=== PATIENT | male | born 1950 | race Caucasian/White ===

== ENCOUNTER 2021-07-24 08:39 | Outpatient (CLI) | payer MEDICARE, OTHER, SELFPAY ==
[2021-07-24 10:15] LABS: Anion Gap 6 mmol/L (8-16); Blood Urea Nitrogen 14 mg/dL (9-20); Calcium 8.9 mg/dL (8.4-10.2); Carbon Dioxide 26 mmol/L (22-30); Chloride 97 mmol/L (98-107); Estimated Glomerular Filt Rate > 60; Glucose 93 mg/dL (65-110); Potassium 4.2 mmol/L (3.4-5.0); Sodium 129 mmol/L (137-145)
== END 2021-07-24 08:40 | disposition home or self-care (01) ==
PROVIDERS: Anesthesiology; PCP Family Medicine; Visit Provider Urology
DX: Z01.812 Encounter for preprocedural laboratory examination (principal); Z51.81 Encounter for therapeutic drug level monitoring; Z79.899 Other long term (current) drug therapy
CPT/HCPCS: 36415; 80048

== ENCOUNTER 2021-07-26 02:14 | Day surgery (SDC) | payer MEDICARE, OTHER, SELFPAY ==
[2021-07-18 11:50] VITALS: BMI 32.2
--- NOTE | 2021-07-20 07:43 | PM.HPGS ---
History of Present Illness History of Present Illness Consent: Risks, benefits, and alternatives have been discussed and questions answered. Patient agrees to proceed with procedure. Chief complaint: BPH Narrative: Olayinka Abdul is a 71 year old male with longstanding, progressive irritable and obstructive voiding symptoms. Evaluation with cystoscopy, transrectal ultrasonography and Urocuff revealed a 33 g prostate with lateral lobe hyperplasia and a small median bar. The Uro cuff was suggestive of bladder outlet obstruction. After discussion of therapeutic options, including ongoing medical therapy, TURP, other minimally invasive procedures for BPH (Rezum, Green-light ablation, etc), he has elected to proceed with Urolift. He is aware the risk of this procedure including, but not limited to, adverse cardiopulmonary events, postoperative bleeding, persistent voiding symptoms. Review of Systems Cardiovascular: Cardiovascular: Denies chest pain, Denies lightheadedness, Denies palpitations and Denies dyspnea Respiratory: Respiratory: Denies dyspnea Gastrointestinal: Gastrointestinal: Denies diarrhea, Denies nausea and Denies vomiting Genitourinary: Genitourinary: Denies hematuria and Denies dysuria Endocrine: Endocrine: Denies palpitations [facility] Social History Social History Smoking packs per day: 1.5 Smoking cigarettes per day: 30.0 Years smoked: 32 Smoking pack-years: 48.00 Smoking status: Former smoker Smoking end date: 05/17/97 Alcohol intake: current Drinks per week: 14 Substance use: never Additional living arrangements comments: Spiritual care concerns: No Meds Home Medications and Allergies Home Medications Medication Instructions Recorded Confirmed Type alendronate 70 mg PO WEEKLY 07/18/21 07/18/21 History aspirin [Adult Aspirin EC Low 81 mg PO DAILY 07/18/21 07/18/21 History Strength] calcium 600 mg PO DAILY 07/18/21 07/18/21 History cetirizine 10 mg PO DAILY 07/18/21 07/18/21 History donepezil 10 mg PO DAILY 07/18/21 07/18/21 History doxazosin 2 mg PO DAILY 07/18/21 07/18/21 History fesoterodine [Toviaz] 8 mg PO DAILY 07/18/21 07/18/21 History fluticasone propion-salmeterol 2 puff INHALATION BID 07/18/21 07/18/21 History [Advair HFA] furosemide 20 mg PO QAM 07/18/21 07/18/21 History ibuprofen 1 mg PO TID 07/18/21 07/18/21 History ipratropium-albuterol 3 ml INHALATION QID 07/18/21 07/18/21 History levofloxacin 500 mg PO DAILY 07/18/21 07/18/21 History lutein 20 mg PO DAILY 07/18/21 07/18/21 History memantine 10 mg PO DAILY 07/18/21 07/18/21 History montelukast 10 mg PO DAILY 07/18/21 07/18/21 History omega-3 fatty acids-vitamin E 1 cap PO DAILY 07/18/21 07/18/21 History [Fish Oil] pantoprazole 40 mg PO DAILY 07/18/21 07/18/21 History phenazopyridine 200 mg PO TID PRN 07/18/21 07/18/21 History pregabalin 100 mg PO BID 07/18/21 07/18/21 History testosterone cypionate 200 mg SUBCUT MONTHLY 07/18/21 07/18/21 History venlafaxine 75 mg PO QAM 07/18/21 07/18/21 History Allergies Allergy/AdvReac Type Severity Reaction Status Date / Time No Known Allergies Allergy Verified 07/18/21 11:34 Exam Const: General: no acute distress Resp: Effort & Inspection: normal respiratory effort GI: Inspection: non-distended GI Palp: No abdominal tenderness and No Guarding due to palpation present (GI) Auscultation: normal bowel sounds Assessment and Plan Assessment and plan (1) BPH loc w urin obs/LUTS: Code(s): N40.1 - Benign prostatic hyperplasia with lower urinary tract symptoms Status: Acute Assessment and Plan: UroLift
[2021-07-26 06:15] VITALS: BP 113/63; PULSE 78; RESP 14; TEMP 36.2; O2SAT 97; BMI 32.5
--- NOTE | 2021-07-26 06:29 | WPDANESEPPF ---
Anes - Initial Pre Proc Eval Procedure: Operation Date: 07/26/21 07:30 Proposed Procedures p Urolift - Keven Gonzales MD Date/Time: 07/26/21 06:29 Surgeon: Keven Gonzales MD Pre Op Diagnosis: BPH Patient Data Age: 71 Gender: M Height: 1.57 m Weight: 80 kg Allergies Allergy/AdvReac Type Severity Reaction Status Date / Time No Known Allergies Allergy Verified 07/18/21 11:34 Home Medications Medication Instructions Recorded Confirmed Type alendronate 70 mg PO WEEKLY 07/18/21 07/18/21 History aspirin [Adult Aspirin EC Low 81 mg PO DAILY 07/18/21 07/18/21 History Strength] calcium 600 mg PO DAILY 07/18/21 07/18/21 History cetirizine 10 mg PO DAILY 07/18/21 07/18/21 History donepezil 10 mg PO DAILY 07/18/21 07/18/21 History doxazosin 2 mg PO DAILY 07/18/21 07/18/21 History fesoterodine [Toviaz] 8 mg PO DAILY 07/18/21 07/18/21 History fluticasone propion-salmeterol 2 puff INHALATION BID 07/18/21 07/18/21 History [Advair HFA] furosemide 20 mg PO QAM 07/18/21 07/18/21 History ibuprofen 1 mg PO TID 07/18/21 07/18/21 History ipratropium-albuterol 3 ml INHALATION QID 07/18/21 07/18/21 History levofloxacin 500 mg PO DAILY 07/18/21 07/18/21 History lutein 20 mg PO DAILY 07/18/21 07/18/21 History memantine 10 mg PO DAILY 07/18/21 07/18/21 History montelukast 10 mg PO DAILY 07/18/21 07/18/21 History omega-3 fatty acids-vitamin E 1 cap PO DAILY 07/18/21 07/18/21 History [Fish Oil] pantoprazole 40 mg PO DAILY 07/18/21 07/18/21 History phenazopyridine 200 mg PO TID PRN 07/18/21 07/18/21 History pregabalin 100 mg PO BID 07/18/21 07/18/21 History testosterone cypionate 200 mg SUBCUT MONTHLY 07/18/21 07/18/21 History venlafaxine 75 mg PO QAM 07/18/21 07/18/21 History Patient hx anesthesia problems: none Family hx anesthesia problems: none PMFSH Past Medical History Medical History (Updated 07/26/21 @ 06:31 by Jet Gonzales MD) COPD (chronic obstructive pulmonary disease) GERD (gastroesophageal reflux disease) JESSICA (obstructive sleep apnea) Requires continuous at home supplemental oxygen Surgical History Surgical History (Updated 07/26/21 @ 06:31 by Jet Gonzales MD) H/O hernia repair Social History Social History Smoking packs per day: 1.5 Smoking cigarettes per day: 30.0 Years smoked: 32 Smoking pack-years: 48.00 Smoking status: Former smoker Smoking end date: 05/17/97 Alcohol intake: current Drinks per week: 14 Substance use: never Living arrangements: with family Additional living arrangements comments: Spiritual care concerns: No Anes - Eval Final PreProcedure Day of Procedure 07/26/21 06:29 Patient weight: obese Heart: regular rate and rhythm Lungs: clear to auscultation Airway: Mallampati scale class II Neurological: alert and oriented Last oral intake: >/= 8 hours ASA classification: III Emergent: no Anesthetic plan: proceed Anesthesia type and monitoring: general GIVS and standard monitoring Informed Consent: The patient's anesthetic plan and its attendant risks and benefits were discussed with the patient/family/POA. Questions were solicited and answers provided to the satisfaction of the patient/family/POA.
[2021-07-26] MEDS: LACTATED RINGERS 1,000 ML 30 ML IV CONT (07:05)
--- NOTE | 2021-07-26 07:11 | WPDHPUPDATE1 ---
History and Physical Update Update Date/Time: 07/26/21 07:11 History and Physical has been reviewed, including an updated exam of the patient. There are NO changes in the patient's condition. Risks, benefits, and alternatives have been discussed and questions answered. Patient agrees to proceed with procedure.
[2021-07-26 07:14] LABS: Anion Gap 7 mmol/L (8-16); Blood Urea Nitrogen 12 mg/dL (9-20); Calcium 8.8 mg/dL (8.4-10.2); Carbon Dioxide 22 mmol/L (22-30); Chloride 100 mmol/L (98-107); Estimated CRCL calculation 56 ml/min; Estimated Glomerular Filt Rate > 60; Glucose 95 mg/dL (65-110); Potassium 4.3 mmol/L (3.4-5.0); Sodium 129 mmol/L (137-145)
[2021-07-26] MEDS: ceFAZolin 2 GM/D5W 50 ML 2 GM/50 ML BAG IVPB (07:25)
[2021-07-26] MEDS: LIDOCAINE HCL 2% GEL UROJET 10 ML PKG MUCOUS MEM (07:37)
--- NOTE | 2021-07-26 07:47 | W.PM.PROC2 ---
Procedure Note - Detailed Date of Procedure 07/26/21 Pre-op Diagnosis BPH Post-op Diagnosis same Procedure Performed UroLift Surgeon Keven Gonzales MD Anesthesia general Description of Procedure The patient was prepped and draped in a routine fashion after the uneventful induction of a general LMA anesthetic. A 20F cystoscope was inserted into the bladder. The cystoscopy bridge was replaced with a UroLift delivery device. The first treatment site was the patient's right side approximately 2.0cm distal to the bladder neck. The distal tip of the delivery device was then angled laterally approximately 20 degrees at this position to compress the lateral lobe. The trigger was pulled, thereby deploying a needle containing the implant through the prostate. The needle was then retracted, allowing one end of the implant to be delivered to the capsular surface of the prostate. The implant was then tensioned to assure capsular seating and removal of slack monofilament. The device was then angled back toward midline and slowly advanced proximally (typically 3 to 4 mm) until cystoscopic verification of the monofilament being centered in the delivery bay. The urethral end piece was then affixed to the monofilament thereby tailoring the size of the implant. Excess filament was then severed. The delivery device was then re-advanced into the bladder. The delivery device was then replaced with cystoscope and bridge and the implant location and opening effect was confirmed cystoscopically. The same procedure was then repeated on the left side, and two additional implants were delivered just proximal to the verumontanum, again one on right and one on left side of the prostate, following the same technique. Cystoscopy then revealed a persistent area of obstruction arising from the left lateral lobe, anteriorly, and one more implant was stacked in the mid-prostate on that side. Therefore, a total of 5 implants were delivered. A final cystoscopy was conducted first to inspect the location and state of each implant and second, to confirm the presence of a continuous anterior channel was present through the prostatic urethra with irrigation flow turned off. The bladder was then filled with 150 cc irrigation fluid to assist the patient in void trial after the procedure, and all instruments were removed. At this point the cystoscope was removed and the patient was taken to the PACU in good condition. Drains No Packing No Pathology none sent Complications No immediate complications Condition stable Disposition PACU
[2021-07-26 07:49] VITALS: BP 88/45; PULSE 86; RESP 16; O2SAT 92
[2021-07-26 08:15] VITALS: BP 90/51; PULSE 81; RESP 20
[2021-07-26 08:45] VITALS: BP 113/71; PULSE 74; RESP 20
[2021-07-26 08:50] VITALS: BP 124/55; PULSE 76; RESP 20
== END 2021-07-26 09:10 | disposition home or self-care (01) ==
PROVIDERS: PCP Family Medicine; Visit Provider Urology
PROC: 0T7D8DZ Dilation of Urethra with Intraluminal Device, Via Natural or Artificial Opening Endoscopic (ICD-10-PCS; CPT 52441; principal; 2021-07-26 07:30)
DX: N40.1 Benign prostatic hyperplasia with lower urinary tract symptoms (principal); N13.8 Other obstructive and reflux uropathy; J44.9 Chronic obstructive pulmonary disease, unspecified; K21.9 Gastro-esophageal reflux disease without esophagitis; G47.33 Obstructive sleep apnea (adult) (pediatric); Z99.81 Dependence on supplemental oxygen; Z79.82 Long term (current) use of aspirin; Z87.891 Personal history of nicotine dependence; E66.9 Obesity, unspecified; Z68.32 Body mass index [BMI] 32.0-32.9, adult
CPT/HCPCS: C9740; 36415; 80048; A9270; J0690; J2704; J3010; J7120; L8699

== ENCOUNTER 2024-07-25 08:53 | Inpatient (IN) | payer MEDICARE, OTHER, SELFPAY ==
[2024-07-25] VITALS (40 sets, daily range): BP systolic 80–141; BP diastolic 50–91; PULSE 54–96; RESP 12–22; TEMP 36.4–36.7; O2SAT 93–100; BMI 30.2
--- NOTE | ~2024-07-25 | CT_ITS ---
Clinical Indication: Pneumonia CT Scan of the Chest with Contrast: Technique: Contiguous sections were acquired throughout the chest after intravenous administration of 100 cc of Omnipaque 350. Dose reduction technique was used on this scan by utilizing automated expos ure control and iterative reconstruction technique. The dose-length product (DLP) was 498.68 mGy-cm. Findings: There is no evidence of any significant mediastinal, hilar or axillary lymphadenopathy. There is no f illing defect in the pulmonary arterial tree to suggest pulmonary embolus. There is no evidence of ao rtic dissection or aneurysm. There is no evidence of pleural or pericardial effusion. There is advanced emphysema. There is a 1.9 cm right upper lobe pulmonary nodule in the perihilar reg ion (axial image 46). 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 5 mm nodule noted at the lingula (axial image 65). Ther e is irregular nodule/consolidation measuring approximately 2 cm in diameter in the left lower lobe ( axial image 65). There is an additional 9 mm irregular nodule in the subpleural region in the left lo wer lobe (axial image 81). Images through the upper abdomen reveal no abnormalities. Impression: No evidence of pulmonary embolus, aortic dissection, or aortic aneurysm. Bilateral pulmonary nodules, including 1.9 cm right upper lobe pulmonary nodule, 2 cm left lower lobe pulmonary nodule, as well as additional subcentimeter nodules. Please see details above. These are i ndeterminate, especially without prior exams to establish chronicity of these lesions. Consider short -term follow-up exam after chemotherapy versus PET/CT or tissue sampling to further evaluate, as neop lastic lesions are not excluded. Comparison with any outside prior chest CT would be extremely useful to assess for chronicity of these lesions. Reviewed, dictated and finalized at [facility]. Impression: No evidence of pulmonary embolus, aortic dissection, or aortic aneurysm. Bilateral pulmonary nodules, including 1.9 cm right upper lobe pulmonary nodule , 2 cm left lower lobe pulmonary nodule, as well as additional subcentimeter no dules. Please see details above. These are indeterminate, especially without pr ior exams to establish chronicity of these lesions. Consider short-term follow- up exam after chemotherapy versus PET/CT or tissue sampling to further evaluate , as neoplastic lesions are not excluded. Comparison with any outside prior [facility] st CT would be extremely useful to assess for chronicity of these lesions.
--- NOTE | ~2024-07-25 | CT_ITS ---
Noncontrast CT scan of the cervical spine Technique: Multiple contiguous axial [address] images of the cervical spine were obtained and rec onstructed in 2D sagittal and coronal planes on the acquisition scanner. Dose reduction technique was used on this scan by utilizing automated exposure control, adjustment of the mA and/or kV according to patient size. The dose-length product (DLP) was 495.02 mGy-cm. Clinical History: Pain Findings: No fracture identified. There is 4 mm anterolisthesis of C4 over C5. There is mild reversal normal cervical lordosis. There is severe degenerative disc narrowing at C6-C7. There is moderate de generative disc narrowing at C5-C6. There are moderate to advanced facet joint degenerative changes s cattered in the cervical spine. There is right neural foraminal narrowing at C3-C4. Probable right ne ural foraminal narrowing at C4-C5. There is mild left neural foraminal narrowing at C5-C6. There is b ilateral neural foraminal narrowing at C6-C7. There is mild to moderate canal stenosis at C6-C7. No p revertebral soft tissue swelling. Impression: No fracture. 4 mm anterolisthesis of C4 over C5. Degenerative spondylosis, as above. Reviewed, dictated and finalized at location . Impression: No fracture. 4 mm anterolisthesis of C4 over C5. Degenerative spondylosis, as above.
--- NOTE | ~2024-07-25 | XR_ITS ---
Clinical Indication: Syncope PA and lateral views of the chest: Comparison: None Findings: Suspected focal subtle hazy opacity right upper lobe. Questionable focal retrocardiac airsp nicho disease. Cardiomediastinal silhouette is within normal limits. Bones and soft tissues are unrema rkable. Impression: Possible focal airspace disease right upper lobe and left lower lobe. Consider pneumonia or possibly chronic changes. Consider chest CT to better evaluate. Reviewed, dictated and finalized at location . Impression: Possible focal airspace disease right upper lobe and left lower lobe. Consider pneumonia or possibly chronic changes. Consider chest CT to better evaluate.
--- NOTE | ~2024-07-25 | CT_ITS ---
CT head without contrast Indication: Status post fall Technique: Serial scans were obtained through the brain without the administration of contrast. Dose reduction technique was used on this scan by utilizing automated exposure control and iterative recon struction technique. The dose-length product (DLP) was 681.00 mGy-cm. Findings: There is no evidence of intracranial hemorrhage, mass lesion, or acute infarct. The ventri cles and subarachnoid spaces are dilated, consistent with moderate atrophy. Low attenuation regions are seen within the periventricular white matter bilaterally, likely representing changes from chroni c microvascular ischemic disease. There is no evidence of edema, mass effect or midline shift. The visualized paranasal sinuses and mastoid air cells are clear. Impression: No intracranial hemorrhage, mass, or acute infarct. Atrophy and chronic white matter changes, as above. Reviewed, dictated and finalized at location . Impression: No intracranial hemorrhage, mass, or acute infarct. Atrophy and chronic white matter changes, as above.
--- NOTE | 2024-07-25 09:09 | ECG_ITS ---
Test Date: 2024-07-25 09:18:34 Measurements Intervals [place] Rate: 60 P: 25 OK: 206 QRS: -19 QRSD: 139 T: 18 QT: 394 QTc: 394 Interpretive Statements SINUS RHYTHM WITH OCCASIONAL VENTRICULAR PREMATURE COMPLEXES BORDERLINE AV CONDUCTION DELAY RIGHT BUNDLE BRANCH BLOCK BASELINE ARTIFACT- I, II, AVR, AVF ABNORMAL ECG No previous ECG available for comparison Electronically Signed On 07-25-2024 11:42:54 CDT by Alcides Quintero D.O.
[2024-07-25 09:41] LABS: Basophils Percent Auto 0.2 % (0.2-1.2); Eosinophils Absolute Auto 0.1 K/mm3 (0-0.3); Eosinophils Percent Auto 0.6 % (0-4.4); Hematocrit 34.9 % (42.0-52.0); Immature Granulocyte Absolute 0.24 K/mm3 (0.00-0.031); Lymphocytes Absolute Auto 1.21 K/mm3 (0.9-3.2); Mean Corpuscular HGB Conc 31.5 g/dl (32-36); Mean Corpuscular Hemoglobin 26.4 pg (26-34); Mean Corpuscular Volume 83.9 fl (80-100); Monocytes Percent Auto 12.9 % (2.6-8.5); Neutrophils Absolute Auto 5.5 K/mm3 (1.3-6.7); Neutrophils Percent Auto 68.3 % (45.5-73.1); Platelet Count Result 235 k/mm3 (150-375); Red Blood Count 4.16 M/mm3 (4.6-6.20); Red Cell Distribution Width 15.9 % (11.5-14.5); White Blood Count 8.1 K/mm3 (4.5-10.0)
[2024-07-25 09:51] LABS: Alanine Aminotransferase 25 U/L (6-50); Albumin Level 3.7 g/dL (3.5-5.1); Alkaline Phosphatase 100 U/L (38-126); Anion Gap 8 mmol/L (4-12); Aspartate Amino Transferase 28 U/L (17-59); Bilirubin,Total 0.4 mg/dL (0.2-1.3); Blood Urea Nitrogen 30 mg/dL (9-20); Carbon Dioxide 25 mmol/L (22-30); Chloride 98 mmol/L (98-107); Estimated CRCL calculation 57 ml/min; Estimated Glomerular Filt Rate > 60; Glucose 101 mg/dL (65-110); Potassium 4.3 mmol/L (3.4-5.0); Sodium 131 mmol/L (137-145)
--- NOTE | 2024-07-25 10:01 | ED.SYNCOPE ---
HPI - Syncope General Chief Complaint: Syncope Stated Complaint: syncopal episode, head injury Time Seen by Provider: 07/25/24 09:59 Source: patient, family () and other (Friend) Mode of arrival: ambulatory Limitations: no limitations History of Present Illness HPI narrative: Patient presents after an episode of syncope. Family and friend confirmed that there was combination of loss of consciousness and muscle tone. Patient had been trying to get out of the car at [employer] when he stood from seated position and then slumped down. He then had his eyes open but he was not responding to them for period of time. He denies any preceding aura sensation that he might faint. He denies any chest pain or shortness of breath. He does wear 4 liters/minute nasal cannula supplemental oxygen for a combination of CHF, COPD, and pulmonary hypertension. He notes that he has had multiple falls recently and this has left his neck sore with intermittent pain. For this reason and because he was experiencing neck pain today he did take 2 extra-strength Tylenol prior to arrival to the emergency department. He is still experiencing some pain at this time despite that. Patient is on dabigatran/Pradaxa for a blood clot that was diagnosed in his left leg a few months ago. He reports taking this b.i.d. including taking his morning dose. He is also on 20 mg b.i.d. Lasix he took his morning dose of this as well. He denies any dizziness but he does state that after the fall he just does not feel well. He has also been amnestic to the event and had some retrograde amnesia. In addition he has a headache. No lower extremity edema. Related Data Home Medications Medication Instructions Recorded Confirmed acetaminophen 325 mg tablet 650 mg PO Q4H pain 07/25/24 07/25/24 albuterol sulfate 90 mcg/actuation 2 inh inhalation Q6H PRN wheezing 07/25/24 07/25/24 aerosol inhaler (Proventil HFA) cetirizine 10 mg tablet 10 mg PO DAILY 07/25/24 07/25/24 dabigatran etexilate 150 mg 150 mg PO BID 07/25/24 07/25/24 capsule (Pradaxa) diltiazem HCl 120 mg 1 mg PO DAILY 07/25/24 07/25/24 tablet,extended release 24 hr donepezil 10 mg tablet 10 mg PO DAILY 07/25/24 07/25/24 empagliflozin 10 mg tablet 10 mg PO DAILY 07/25/24 07/25/24 (Jardiance) fluticasone propionate 230 2 inh inhalation BID 07/25/24 07/25/24 mcg-salmeterol 21 mcg/actuation HFA inhaler furosemide 40 mg tablet 40 mg PO DAILY 07/25/24 07/25/24 itraconazole 10 mg/mL oral solution 200 mg PO BID 07/25/24 07/25/24 lidocaine 5 % topical patch 1 patch topical DAILY 07/25/24 07/25/24 lutein 20 mg capsule 20 mg PO DAILY 07/25/24 07/25/24 memantine 10 mg tablet 10 mg PO BID 07/25/24 07/25/24 metoprolol succinate 50 mg 50 mg PO DAILY 07/25/24 07/25/24 tablet,extended release 24 hr montelukast 10 mg tablet 10 mg PO DAILY 07/25/24 07/25/24 oxybutynin chloride 10 mg 10 mg PO DAILY 07/25/24 07/25/24 tablet,extended release 24 hr pantoprazole 40 mg tablet,delayed 40 mg PO DAILY 07/25/24 07/25/24 release pregabalin 200 mg capsule 200 mg PO BID 07/25/24 07/25/24 spironolactone 25 mg tablet 25 mg PO DAILY 07/25/24 07/25/24 tiotropium bromide 2.5 2 inh inhalation DAILY 07/25/24 07/25/24 mcg/actuation mist for inhalation (Spiriva Respimat) tramadol 50 mg tablet 50 mg PO Q6H PRN Pain 07/25/24 07/25/24 venlafaxine 150 mg 150 mg PO HS 07/25/24 07/25/24 capsule,extended release 24 hr venlafaxine 75 mg capsule,extended 75 mg PO HS 07/25/24 07/25/24 release 24 hr Allergies Allergy/AdvReac Type Severity Reaction Status Date / Time No Known Allergies Allergy Verified 07/25/24 10:41 [facility] Past Medical History Medical History (Updated 07/25/24 @ 20:16 by Catalina Castano PA-C) Anxiety Arthritis Benign prostatic hyperplasia UroLift in July 2021. Chronic anticoagulation Chronic obstructive pulmonary disease Chronic respiratory failure with hypoxia, on home oxygen therapy Congestive heart fa
[2024-07-25] MEDS: MORPHINE SULFATE (*CRX) 4 MG/ML INJ IV PUSH (10:42)
[2024-07-25 11:01] LABS: Magnesium 2.1 mg/dL (1.6-2.3)
[2024-07-25 11:01] LABS: Add Urine Microscopic? NO; Appearance Urine Clear (Clear); Bilirubin Urine Negative (Negative); Blood Urine Negative (Negative); Color Urine Yellow (Yellow); Glucose Urine UA 3+ mg/dL (Negative); Ketones Urine Negative (Negative); Leukocyte Esterase Ur Negative LEU/UL (Negative); Nitrate Urine Negative (Negative); Protein Urine Negative (Negative); Specific Grav Ur 1.019 (1.001-1.035); Urobilinogen Urine 0.2 mg/dL (<2.0)
[2024-07-25 11:10] LABS: NT Pro B Type Natriuretic Pept 166 pg/mL (19.9-100); Troponin I < 0.012 ng/mL (0.000-0.034)
[2024-07-25] MEDS: SODIUM CHLORIDE 0.9% IV 1,000 ML 999 ML IV CONT ×2 (11:19→13:34)
[2024-07-25 11:35] LABS: Influenza A QL RT-PCR Negative (Negative); Influenza B QL RT-PCR Negative (Negative); RSV RNA, RT-PCR Negative (Negative); SARS-CoV-2 RNA PCR Negative (Negative)
--- NOTE | 2024-07-25 13:25 | PM.IMHP ---
H&P: HPI History of Present Illness Date/Time: 07/25/24 13:25 Chief Complaint: Syncope. Narrative: This is a very pleasant 74-year-old male with history of mild cognitive impairment, chronic obstructive pulmonary disease, pulmonary hypertension, obstructive sleep apnea, chronic respiratory failure on home oxygen, heart failure with preserved ejection fraction, left lower extremity DVT on dabigatran, and benign prostatic hyperplasia who presented to the emergency department for evaluation after syncopal episode. The patient and his provide the following history. He was hospitalized at [facility] in the last month and a half or so at which time he was diagnosed with fungal pneumonia for which he is to remain on itraconazole for upwards of a year. During that visit he was found to have a left lower extremity DVT and was started on dabigatran. He also had a stress echo and was started on diltiazem, metoprolol, and spironolactone thereafter though he cannot provide more specific details. In any event, he has been doing okay since discharge and he has not had any real complaints. His home health nurse has remarked that his blood pressures have been lower than usual since his discharge though the patient seems to be asymptomatic with that. He has bruising throughout his upper and lower extremities and reports that he has had numerous falls this year but none in a couple of weeks. He is essentially wheelchair bound but can stand and pivot however he admits that he is quite weak and his legs tend to give out, causing the falls. He felt okay when he got up this morning, had breakfast, and he and his headed out to [employer]. While attempting to exit the car he slumped in the seat and was briefly unresponsive although states his eyes were open. He does not recall experiencing antecedent symptoms prior to this episode. He denies fever, vertigo, chest pain, pleuritic pain, increase in shortness of breath from baseline, palpitations, orthopnea, paroxysmal nocturnal dyspnea, lower extremity edema, calf pain, nausea, vomiting, diarrhea, and dysuria. In the ED: He was afebrile on arrival and in sinus rhythm with rates in the low 60s. SpO2 was 98% on his usual 4 L. Orthostatic vital signs were positive (128/65, 61--> 113/70, 62--> 80/50, 96). Labs were significant for WBC count of 8.1, hemoglobin 11.0, sodium 131, BUN 30, creatinine 0.90, troponin less than 0.012, proBNP 166. He was negative for influenza, RSV, and COVID. CT of the head and cervical spine showed no acute findings. Chest CT showed no evidence of pulmonary embolism, dissection, or aneurysm but did note several bilateral pulmonary nodules which are known to the patient. EKG showed sinus rhythm with occasional PVCs and right bundle-branch block. He received 2 L normal saline and is being admitted in this setting for further treatment and evaluation. Review of Systems Review of Systems: 12 systems were reviewed and are negative except for as per HPI. [facility] Past Medical History Medical History (Updated 07/25/24 @ 20:16 by Catalina Castano PA-C) Anxiety Arthritis Benign prostatic hyperplasia UroLift in July 2021. Chronic anticoagulation Chronic obstructive pulmonary disease Chronic respiratory failure with hypoxia, on home oxygen therapy Congestive heart failure Fungal pneumonia Left leg DVT Mild cognitive impairment Obstructive sleep apnea on CPAP Pulmonary hypertension Pulmonary nodule Followed by a specialist affiliated [facility]. Surgical History Surgical History (Updated 07/25/24 @ 13:29 by Catalina Castano PA-C) History of bilateral inguinal hernia repair History of cataract extraction with lens replacement History of detached retina repair Right. History of open reduction and internal fixation (ORIF) procedure Left foot. Family History Family History (Updated 07/25/24 @ 16:53 by Catalina Castano PA-C) Other Family history non-contributory Soc
--- NOTE | 2024-07-25 14:16 | PC.NURSE ---
This patient, Olayinka Abdul, was admitted to Medical Room 254-01. Patient/family oriented to hospital policies and general routines including ID bracelet, bed and alarms, visiting hours, pain management, procedures, bathroom and other care routines, personal items, smoking policy, room service/diet, and visiting hours. Information on how to activate the Rapid Response Team has been discussed. Patient/Family are encouraged to report perceived risks to care and to ask questions if they do not understand what they are told or what they should do.
[2024-07-25 16:23] LABS: Urea Random Urine 347 MG/DL
[2024-07-25 16:30] LABS: Sodium Urine Random 103 meq/L
[2024-07-25] MEDS: LACTATED RINGERS 1,000 ML 100 ML IV CONT (17:25)
[2024-07-25 18:44] LABS: Folic Acid > 20.0 ng/mL (2.76->20)
[2024-07-25 20:20] LABS: Iron 52 ug/dL (49-181)
[2024-07-25 20:31] LABS: Percent Iron Saturation 13 % (20-50)
[2024-07-25] MEDS: PREGABALIN (*CRX) 50 MG CAPSULE 200 MG PO (20:41)
[2024-07-25] MEDS: traMADol HCL (*CRX) 50 MG TABLET PO (20:41)
[2024-07-25] MEDS: DABIGATRAN ETEXILATE 150 MG CAPSULE PO (20:42)
[2024-07-25] MEDS: VENLAFAXINE HCL XR 75 MG CAP.ER.24H PO (20:42)
[2024-07-25] MEDS: VENLAFAXINE HCL XR 75 MG CAP.ER.24H 150 MG PO (20:42)
[2024-07-25] MEDS: MEMANTINE 10 MG TABLET PO (20:42)
[2024-07-25] MEDS: FLUTICASONE/SALMETEROL 230-21 MCG INHALER 1 PUFF 2 PUFF INHALATION (21:13)
[2024-07-26] VITALS (23 sets, daily range): BP systolic 79–120; BP diastolic 42–72; PULSE 53–88; RESP 17–20; TEMP 36.3–36.6; O2SAT 93–100
[2024-07-26 03:18] LABS: Free T4 Free Thyroxine Reflex 0.86 ng/dL (0.78-2.19)
[2024-07-26 04:16] LABS: Total Triiodothyronine (T3) 1.23 NG/ML (0.97-1.69)
[2024-07-26 06:21] LABS: Hematocrit 35.1 % (42.0-52.0); Hemoglobin 10.7 g/dL (14.0-18.0); Mean Corpuscular HGB Conc 30.5 g/dl (32-36); Mean Corpuscular Volume 85.4 fl (80-100); Mean Platelet Volume 9.1 fl (7.4-10.4); Platelet Count Result 232 k/mm3 (150-375); Red Blood Count 4.11 M/mm3 (4.6-6.20); Red Cell Distribution Width 16.3 % (11.5-14.5); White Blood Count 8.1 K/mm3 (4.5-10.0)
[2024-07-26 06:31] LABS: Anion Gap 2 mmol/L (4-12); Blood Urea Nitrogen 21 mg/dL (9-20); Calcium 9.2 mg/dL (8.4-10.2); Carbon Dioxide 27 mmol/L (22-30); Chloride 105 mmol/L (98-107); Estimated CRCL calculation 58 ml/min; Estimated Glomerular Filt Rate > 60; Glucose 75 mg/dL (65-110); Magnesium 2.2 mg/dL (1.6-2.3); Potassium 5.1 mmol/L (3.4-5.0); Sodium 134 mmol/L (137-145)
[2024-07-26] MEDS: FLUTICASONE/SALMETEROL 230-21 MCG INHALER 1 PUFF 2 PUFF INHALATION ×2 (08:12→20:25)
[2024-07-26] MEDS: UMECLIDINIUM BROMIDE 62.5 MCG ELLIPTA 1 PUFF INHALATION (08:13)
[2024-07-26] MEDS: MEMANTINE 10 MG TABLET PO ×2 (09:18→20:20)
[2024-07-26] MEDS: PANTOPRAZOLE 40 MG TABLET PO (09:19)
[2024-07-26] MEDS: EMPAGLIFLOZIN 10 MG TABLET PO (09:19)
[2024-07-26] MEDS: PREGABALIN (*CRX) 50 MG CAPSULE 200 MG PO ×2 (09:23→20:19)
[2024-07-26] MEDS: LORATADINE 10 MG TABLET PO (09:23)
[2024-07-26] MEDS: MONTELUKAST SODIUM 10 MG TABLET PO (09:24)
[2024-07-26] MEDS: oxyBUTYnin CHLORIDE XL 5 MG TAB.ER.24 10 MG PO (09:26)
[2024-07-26] MEDS: DABIGATRAN ETEXILATE 150 MG CAPSULE PO ×2 (09:43→20:19)
--- NOTE | 2024-07-26 09:43 | PM.IMPN ---
Progress Note: A&P Assessment and Plan (1) Chronic obstructive pulmonary disease: Code(s): J44.9 - Chronic obstructive pulmonary disease, unspecified Status: Acute Assessment and Plan: Take inhalers as prescribed. Report any worsening shortness of breath. (2) Orthostatic syncope: Code(s): I95.1 - Orthostatic hypotension Status: Acute Assessment and Plan: NS@ 100 ml/hr x 5 hours. Encourage PO intake. Slow movement. Only up with assistance. Monitor orthostatics. (3) Benign prostatic hyperplasia: Code(s): N40.0 - Benign prostatic hyperplasia without lower urinary tract symptoms Status: Chronic Assessment and Plan: Continue Oxybutynin. Report any difficulty urinating or blood in urine. (4) Obstructive sleep apnea on CPAP: Code(s): G47.33 - Obstructive sleep apnea (adult) (pediatric) Status: Acute Assessment and Plan: Wear CPAP at night and when napping. Report any shortness of breath. (5) Normocytic anemia: Code(s): D64.9 - Anemia, unspecified Status: Acute Assessment and Plan: 07/26/24: H&H 10.7/35.1. 07/25/24: Iron 52, TIBC 404, % saturation 13, Ferritin 35.80. Add Ferrous Sulfate 325 mg PO daily. Check stool for occult blood. Plan The patient presented to the emergency department for evaluation after a witnessed syncopal episode as detailed in HPI. Labs, imaging, EKG, and all reports were personally reviewed. Likely due to orthostatic hypotension. According to the patient, his home health nurse has noticed that his blood pressures have been a lot lower than normal after he was started on diltiazem, metoprolol, and spironolactone following is most recent hospitalization. He will be monitored on telemetry to rule out cardiac dysrhythmia given bradycardia. Hold donepezil and doxazosin as these can cause orthostatic hypotension. We will also hold his diltiazem, furosemide, and spironolactone as well for now. Continue metoprolol with parameters. Continue to monitor orthostatic vital signs Q shift. Initiate fall precautions. He received 2 L of crystalloids in the ED with some improvement his blood pressures. Hold on further fluids at this time as he appears euvolemic (while his sodium is a bit low at 131 and BUN is up at 30, fractional excretion of sodium and urea suggest this is not pre renal). He has a mild normocytic anemia for which we will check iron studies, B12, folate, and stool for occult blood; patient is on dabigatran for recently diagnosed left lower extremity DVT. Given his frequent falls and now syncope, it may be prudent to consider IVC filter placement. He is at his baseline oxygen requirement. No evidence of COPD exacerbation. CPAP will be provided for the patient to use while hospitalized. Regarding the pulmonary nodules, these are known to the patient and he is being followed by specialists affiliated with [facility]. Continue itraconazole b.i.d. for fungal pneumonia. The rest of his home medications will be reviewed and resumed as appropriate. Records requested from [facility] for review. Findings and treatment plan were discussed with the patient. Subjective Date/time seen: 07/26/24 09:43 Interval history: This is a very pleasant 74-year-old male with history of mild cognitive impairment, chronic obstructive pulmonary disease, pulmonary hypertension, obstructive sleep apnea, chronic respiratory failure on home oxygen, heart failure with preserved ejection fraction, left lower extremity DVT on dabigatran, and benign prostatic hyperplasia who presented to the emergency department for evaluation after syncopal episode. The patient and his provide the following history. He was hospitalized at [facility] in the last month and a half or so at which time he was diagnosed with fungal pneumonia for which he is to remain on itraconazole for upwards of a year. During that visit he was found to have a left lower extremity DVT and was sta
[2024-07-26] MEDS: traMADol HCL (*CRX) 50 MG TABLET PO ×2 (09:49→20:31)
[2024-07-26] MEDS: LIDOCAINE 5% PATCH 1 PATCH TOPICAL (09:57)
[2024-07-26] MEDS: SODIUM CHLORIDE 0.9% IV 500 ML 100 ML IV CONT (13:27)
[2024-07-26] MEDS: VENLAFAXINE HCL XR 75 MG CAP.ER.24H PO (20:20)
[2024-07-26] MEDS: VENLAFAXINE HCL XR 75 MG CAP.ER.24H 150 MG PO (20:21)
[2024-07-27] VITALS (24 sets, daily range): BP systolic 103–147; BP diastolic 51–75; PULSE 62–87; RESP 18–20; TEMP 35.6–36.5; O2SAT 95–100
[2024-07-27 06:08] LABS: Basophils Percent Auto 0.4 % (0.2-1.2); Eosinophils Absolute Auto 0.1 K/mm3 (0-0.3); Hemoglobin 10.8 g/dL (14.0-18.0); Immature Granulocyte Absolute 0.19 K/mm3 (0.00-0.031); Immature Granulocyte Percent A 2.5 % (0-0.5); Lymphocytes Absolute Auto 1.28 K/mm3 (0.9-3.2); Lymphocytes Percent Auto 16.6 % (18.3-44.2); Mean Corpuscular HGB Conc 30.9 g/dl (32-36); Mean Corpuscular Hemoglobin 26.3 pg (26-34); Mean Corpuscular Volume 85.4 fl (80-100); Mean Platelet Volume 9.2 fl (7.4-10.4); Neutrophils Absolute Auto 5.1 K/mm3 (1.3-6.7); Neutrophils Percent Auto 66.5 % (45.5-73.1); Platelet Count Result 230 k/mm3 (150-375); Red Cell Distribution Width 16.2 % (11.5-14.5); White Blood Count 7.7 K/mm3 (4.5-10.0)
[2024-07-27 06:14] LABS: Alanine Aminotransferase 24 U/L (6-50); Albumin Level 3.4 g/dL (3.5-5.1); Alkaline Phosphatase 94 U/L (38-126); Anion Gap 5 mmol/L (4-12); Aspartate Amino Transferase 25 U/L (17-59); Bilirubin,Total 0.3 mg/dL (0.2-1.3); Blood Urea Nitrogen 26 mg/dL (9-20); Calcium 8.9 mg/dL (8.4-10.2); Carbon Dioxide 27 mmol/L (22-30); Chloride 103 mmol/L (98-107); Estimated CRCL calculation 58 ml/min; Estimated Glomerular Filt Rate > 60; Glucose 77 mg/dL (65-110); Potassium 4.4 mmol/L (3.4-5.0); Sodium 135 mmol/L (137-145)
[2024-07-27] MEDS: FLUTICASONE/SALMETEROL 230-21 MCG INHALER 1 PUFF 2 PUFF INHALATION ×2 (08:33→20:27)
[2024-07-27] MEDS: UMECLIDINIUM BROMIDE 62.5 MCG ELLIPTA 1 PUFF INHALATION (08:33)
[2024-07-27] MEDS: MEMANTINE 10 MG TABLET PO ×2 (10:18→20:14)
[2024-07-27] MEDS: MONTELUKAST SODIUM 10 MG TABLET PO (10:18)
[2024-07-27] MEDS: FERROUS SULFATE 325 MG TABLET DR PO (10:18)
[2024-07-27] MEDS: DABIGATRAN ETEXILATE 150 MG CAPSULE PO ×2 (10:18→20:14)
[2024-07-27] MEDS: METOPROLOL SUCCINATE EXT REL 50 MG TABCR PO (10:19)
[2024-07-27] MEDS: oxyBUTYnin CHLORIDE XL 5 MG TAB.ER.24 10 MG PO (10:20)
[2024-07-27] MEDS: PANTOPRAZOLE 40 MG TABLET PO (10:21)
[2024-07-27] MEDS: PREGABALIN (*CRX) 50 MG CAPSULE 200 MG PO ×2 (10:21→20:13)
[2024-07-27] MEDS: LORATADINE 10 MG TABLET PO (10:21)
[2024-07-27] MEDS: EMPAGLIFLOZIN 10 MG TABLET PO (10:21)
[2024-07-27] MEDS: LIDOCAINE 5% PATCH 1 PATCH TOPICAL (10:21)
[2024-07-27] MEDS: traMADol HCL (*CRX) 50 MG TABLET PO ×2 (11:21→20:13)
--- NOTE | 2024-07-27 12:08 | PM.IMPN ---
Progress Note: A&P Assessment and Plan (1) Chronic obstructive pulmonary disease: Code(s): J44.9 - Chronic obstructive pulmonary disease, unspecified Status: Acute Assessment and Plan: Take inhalers as prescribed. Report any worsening shortness of breath. (2) Orthostatic syncope: Code(s): I95.1 - Orthostatic hypotension Status: Acute Assessment and Plan: Improved after NS@ 100 ml/hr x 5 hours. Patient current orthostatic vital signs: supine BP 128/51 HR 87, Sitting 111/63 HR 83, and standing 113/68 HR 76. Encourage PO intake. Slow movement. Only up with assistance. Monitor orthostatics. (3) Benign prostatic hyperplasia: Code(s): N40.0 - Benign prostatic hyperplasia without lower urinary tract symptoms Status: Chronic Assessment and Plan: Continue Oxybutynin. Report any difficulty urinating or blood in urine. (4) Obstructive sleep apnea on CPAP: Code(s): G47.33 - Obstructive sleep apnea (adult) (pediatric) Status: Acute Assessment and Plan: Wear CPAP at night and when napping. Report any shortness of breath. (5) Normocytic anemia: Code(s): D64.9 - Anemia, unspecified Status: Acute Assessment and Plan: 07/27/24: H&H 10.8/35.0. 07/26/24: H&H 10.7/35.1. 07/25/24: Iron 52, TIBC 404, % saturation 13, Ferritin 35.80. Ferrous Sulfate 325 mg PO daily. Check stool for occult blood. Plan The patient presented to the emergency department for evaluation after a witnessed syncopal episode as detailed in HPI. Labs, imaging, EKG, and all reports were personally reviewed. Likely due to orthostatic hypotension. According to the patient, his home health nurse has noticed that his blood pressures have been a lot lower than normal after he was started on diltiazem, metoprolol, and spironolactone following is most recent hospitalization. He will be monitored on telemetry to rule out cardiac dysrhythmia given bradycardia. Hold donepezil and doxazosin as these can cause orthostatic hypotension. We will also hold his diltiazem, furosemide, and spironolactone as well for now. Continue metoprolol with parameters. Continue to monitor orthostatic vital signs Q shift. Initiate fall precautions. He received 2 L of crystalloids in the ED with some improvement his blood pressures. Hold on further fluids at this time as he appears euvolemic (while his sodium is a bit low at 131 and BUN is up at 30, fractional excretion of sodium and urea suggest this is not pre renal). He has a mild normocytic anemia for which we will check iron studies, B12, folate, and stool for occult blood; patient is on dabigatran for recently diagnosed left lower extremity DVT. Given his frequent falls and now syncope, it may be prudent to consider IVC filter placement. He is at his baseline oxygen requirement. No evidence of COPD exacerbation. CPAP will be provided for the patient to use while hospitalized. Regarding the pulmonary nodules, these are known to the patient and he is being followed by specialists affiliated with [facility]. Continue itraconazole b.i.d. for fungal pneumonia. The rest of his home medications will be reviewed and resumed as appropriate. Records requested from [facility] for review. Findings and treatment plan were discussed with the patient. Subjective Date/time seen: 07/27/24 12:08 Interval history: This is a very pleasant 74-year-old male with history of mild cognitive impairment, chronic obstructive pulmonary disease, pulmonary hypertension, obstructive sleep apnea, chronic respiratory failure on home oxygen, heart failure with preserved ejection fraction, left lower extremity DVT on dabigatran, and benign prostatic hyperplasia who presented to the emergency department for evaluation after syncopal episode. The patient and his provide the following history. He was hospitalized at [facility] in the last month and a half or so at which time he was diagnosed with fungal
--- NOTE | 2024-07-27 13:56 | PC.NURSE ---
On 07/27/24, the student, [Eusebia Herman], provided care and completed [facility] documentation on this patient. I have reviewed the student's documentation and agree with the findings.
[2024-07-27 14:29] LABS: Osmolality, Urine 430 mOsm/kg (50-1200)
[2024-07-27 14:46] LABS: IFOB Positive Control Positive; Immunochemical Fecal Occult Bl Positive (N)
--- NOTE | 2024-07-27 16:09 | WPDGICN ---
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 Last month was at another hospital treated for copd exacerbation, pneumonia and fall, also had SVT. Here after orthostatic hypotension, he fell down after getting out his car and trying to reach wheelchair. Evaluated for syncope, no overt gib but + FOBT, last colonoscopy 10 years ago, denies melena, no n/v or abdominal pain Review of Systems Constitutional: Constitutional: Denies chills Eyes: Eyes: Denies blurry vision ENT: Reports Normal hearing present and Denies neck pain Cardiovascular: Cardiovascular: Denies chest pain Respiratory: Respiratory: Denies cough Gastrointestinal: Gastrointestinal: Reports no additional gastrointestinal complaints Genitourinary: Genitourinary: Denies dysuria Musculoskeletal: Musculoskeletal: Denies back pain Integumentary/Breasts: Skin/Breast: Denies dry skin Neurologic: Reports Normal hearing present Comments: syncope Psychiatric: Psychiatric: Denies anxiety Endocrine: Endocrine: Denies change in body appearance Allergic/Immunologic: Allergic/Immunologic: Denies urticaria PMFSH Past Medical History Medical History (Updated 07/28/24 @ 07:29 by William Espinal MD) Anxiety Arthritis Benign prostatic hyperplasia UroLift in July 2021. Chronic anticoagulation Chronic obstructive pulmonary disease Chronic respiratory failure with hypoxia, on home oxygen therapy Congestive heart failure COPD (chronic obstructive pulmonary disease) Fungal pneumonia GERD (gastroesophageal reflux disease) Left leg DVT Mild cognitive impairment Obstructive sleep apnea on CPAP Occult blood positive stool Orthostatic hypotension JESSICA (obstructive sleep apnea) Pulmonary hypertension Pulmonary nodule Followed by a specialist affiliated [facility]. Requires continuous at home supplemental oxygen Surgical History Surgical History (Updated 07/26/24 @ 09:30 by Ligia Burleson) H/O hernia repair History of bilateral inguinal hernia repair History of cataract extraction with lens replacement History of detached retina repair Right. History of open reduction and internal fixation (ORIF) procedure Left foot. Family History Family History (System 07/26/24 @ 09:30 by Ligia Burleson) Other Family history non-contributory Social History Social History (System 07/26/24 @ 09:30 by Ligia Burleson) Social History: Surrogate medical decision maker: Tanisha Abdul, spouse. Code status: Do not resuscitate. Smoking packs per day: 1.5 Smoking cigarettes per day: 30.0 Years smoked: 32 Smoking pack-years: 48.00 Smoking status: Former smoker Smoking end date: 05/17/97 Alcohol intake: never Drinks per week: 14 Substance use: never Do You Feel Safe in your Home?: Yes Lack of Transportation: No
[2024-07-27] MEDS: BISACODYL 5 MG TABLET EC 20 MG PO (17:39)
[2024-07-27] MEDS: polyethylene glycoL 3350 238 GM BOTTLE PO (17:40)
[2024-07-27] MEDS: VENLAFAXINE HCL XR 75 MG CAP.ER.24H PO (20:14)
[2024-07-27] MEDS: VENLAFAXINE HCL XR 75 MG CAP.ER.24H 150 MG PO (20:14)
[2024-07-28] VITALS (21 sets, daily range): BP systolic 101–144; BP diastolic 47–82; PULSE 68–103; RESP 18–22; TEMP 35.8–36.9; O2SAT 91–100
[2024-07-28] MEDS: MAGNESIUM CITRATE 300 ML BTL PO ×2 (02:14→07:28)
[2024-07-28 05:15] LABS: Basophils Absolute Auto 0.1 K/mm3 (0.0-0.1); Basophils Percent Auto 0.4 % (0.2-1.2); Eosinophils Absolute Auto 0.1 K/mm3 (0-0.3); Hematocrit 35.8 % (42.0-52.0); Hemoglobin 10.8 g/dL (14.0-18.0); Immature Granulocyte Absolute 0.21 K/mm3 (0.00-0.031); Immature Granulocyte Percent A 1.9 % (0-0.5); Lymphocytes Percent Auto 14.3 % (18.3-44.2); Mean Corpuscular HGB Conc 30.2 g/dl (32-36); Mean Corpuscular Hemoglobin 25.4 pg (26-34); Mean Corpuscular Volume 84.2 fl (80-100); Mean Platelet Volume 8.9 fl (7.4-10.4); Monocytes Absolute Auto 1.5 K/mm3 (0.1-0.6); Neutrophils Absolute Auto 7.7 K/mm3 (1.3-6.7); Neutrophils Percent Auto 69.4 % (45.5-73.1); Platelet Count Result 257 k/mm3 (150-375); Red Blood Count 4.25 M/mm3 (4.6-6.20); Red Cell Distribution Width 16.3 % (11.5-14.5); White Blood Count 11.2 K/mm3 (4.5-10.0)
[2024-07-28 05:30] LABS: Alanine Aminotransferase 26 U/L (6-50); Albumin Level 3.4 g/dL (3.5-5.1); Alkaline Phosphatase 94 U/L (38-126); Anion Gap 5 mmol/L (4-12); Aspartate Amino Transferase 36 U/L (17-59); Bilirubin,Total 0.2 mg/dL (0.2-1.3); Blood Urea Nitrogen 24 mg/dL (9-20); Calcium 9.1 mg/dL (8.4-10.2); Carbon Dioxide 27 mmol/L (22-30); Chloride 103 mmol/L (98-107); Estimated CRCL calculation 58 ml/min; Estimated Glomerular Filt Rate > 60; Glucose 82 mg/dL (65-110); Potassium 4.4 mmol/L (3.4-5.0); Sodium 135 mmol/L (137-145)
--- NOTE | 2024-07-28 06:24 | PC.NURSE ---
called GI lab and informed that patient finished prescribed bowel prep but is still having soft formed stools.
[2024-07-28] MEDS: FLUTICASONE/SALMETEROL 230-21 MCG INHALER 1 PUFF 2 PUFF INHALATION ×2 (09:20→20:16)
[2024-07-28] MEDS: UMECLIDINIUM BROMIDE 62.5 MCG ELLIPTA 1 PUFF INHALATION (09:22)
[2024-07-28] MEDS: traMADol HCL (*CRX) 50 MG TABLET PO ×2 (09:47→20:15)
[2024-07-28] MEDS: MONTELUKAST SODIUM 10 MG TABLET PO (09:48)
[2024-07-28] MEDS: PANTOPRAZOLE 40 MG TABLET PO (09:48)
[2024-07-28] MEDS: LIDOCAINE 5% PATCH 1 PATCH TOPICAL (09:48)
[2024-07-28] MEDS: LORATADINE 10 MG TABLET PO (09:48)
--- NOTE | 2024-07-28 10:48 | PCPTNOTE ---
Patient reports he does not want to participate as he is having a colonoscopy, has done the prep for it and waiting on the procedure.
[2024-07-28] MEDS: LACTATED RINGERS 1,000 ML 150 ML IV CONT (12:02)
--- NOTE | 2024-07-28 12:12 | PM.IMPN ---
Progress Note: A&P Assessment and Plan (1) Chronic obstructive pulmonary disease: Code(s): J44.9 - Chronic obstructive pulmonary disease, unspecified Status: Acute Assessment and Plan: Take inhalers as prescribed. Report any worsening shortness of breath. (2) Orthostatic syncope: Code(s): I95.1 - Orthostatic hypotension Status: Acute Assessment and Plan: Patient current orthostatic vital signs: supine BP 126/71 HR 70, Sitting 114/69 HR 76, and standing 108/63 HR 91. Encourage PO intake once colonoscopy is completed. Slow movement. Only up with assistance. Monitor orthostatics. (3) Normocytic anemia: Code(s): D64.9 - Anemia, unspecified Status: Acute Assessment and Plan: 07/28/24:10.8/35.8. 07/27/24: H&H 10.8/35.0. 07/26/24: H&H 10.7/35.1. 07/25/24: Iron 52, TIBC 404, % saturation 13, Ferritin 35.80. Ferrous Sulfate 325 mg PO daily. Stool positive for occult blood. Colonoscopy today showed: There were two 3 mm to 8 mm polyps observed in the cecum. One cold snare and one hot snare polypectomies were performed. The polyps were completely excised. One Resolution Clip was placed to prevent bleeding.. There was a single 4 mm polyp observed in the ascending colon. A cold snare polypectomy was performed. The polyp was completely excised. The colon was examined and was normal. No AVM, no colitis, no signs of bleeding. A few diverticula were present in the sigmoid colon, The diverticula were not actively bleeding. Monitor labs and for blood in stool. (4) Benign prostatic hyperplasia: Code(s): N40.0 - Benign prostatic hyperplasia without lower urinary tract symptoms Status: Chronic Assessment and Plan: Continue Oxybutynin. Report any difficulty urinating or blood in urine. (5) Obstructive sleep apnea on CPAP: Code(s): G47.33 - Obstructive sleep apnea (adult) (pediatric) Status: Acute Assessment and Plan: Wear CPAP at night and when napping. Report any shortness of breath. Plan The patient presented to the emergency department for evaluation after a witnessed syncopal episode as detailed in HPI. Labs, imaging, EKG, and all reports were personally reviewed. Likely due to orthostatic hypotension. According to the patient, his home health nurse has noticed that his blood pressures have been a lot lower than normal after he was started on diltiazem, metoprolol, and spironolactone following is most recent hospitalization. He will be monitored on telemetry to rule out cardiac dysrhythmia given bradycardia. Hold donepezil and doxazosin as these can cause orthostatic hypotension. We will also hold his diltiazem, furosemide, and spironolactone as well for now. Continue metoprolol with parameters. Continue to monitor orthostatic vital signs Q shift. Initiate fall precautions. He received 2 L of crystalloids in the ED with some improvement his blood pressures. Hold on further fluids at this time as he appears euvolemic (while his sodium is a bit low at 131 and BUN is up at 30, fractional excretion of sodium and urea suggest this is not pre renal). He has a mild normocytic anemia for which we will check iron studies, B12, folate, and stool for occult blood; patient is on dabigatran for recently diagnosed left lower extremity DVT. Given his frequent falls and now syncope, it may be prudent to consider IVC filter placement. He is at his baseline oxygen requirement. No evidence of COPD exacerbation. CPAP will be provided for the patient to use while hospitalized. Regarding the pulmonary nodules, these are known to the patient and he is being followed by specialists affiliated with [facility]. Continue itraconazole b.i.d. for fungal pneumonia. The rest of his home medications will be reviewed and resumed as appropriate. Records requested from [facility] for review. Findings and treatment plan were discussed with the patient. Subjective Date/time seen: 07/28/24 12:12 Interval
--- NOTE | 2024-07-28 12:19 | WPDANESEPPF ---
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 Patient Data Age: 74 Gender: M Height: 1.57 m Weight: 75.6 kg Last Vital Signs Temp 96.4 F L 07/28/24 11:50 Pulse 74 07/28/24 11:50 Resp 18 07/28/24 11:50 BP 110/82 07/28/24 11:50 Pulse Ox 95 07/28/24 11:50 O2 Del Method Nasal Cannula 07/28/24 11:50 O2 Flow Rate 4 07/28/24 11:50 FiO2 36 07/27/24 19:52 Allergies Allergy/AdvReac Type Severity Reaction Status Date / Time No Known Allergies Allergy Verified 07/28/24 11:55 Home Medications Medication Instructions Recorded Confirmed Type alendronate 70 mg tablet 70 mg PO WEEKLY 07/18/21 07/18/21 History aspirin 81 mg tablet,delayed 81 mg PO DAILY 07/18/21 07/18/21 History release calcium 600 mg capsule 600 mg PO DAILY 07/18/21 07/18/21 History cetirizine 10 mg tablet 10 mg PO DAILY 07/18/21 07/18/21 History donepezil 10 mg tablet 10 mg PO DAILY 07/18/21 07/18/21 History doxazosin 2 mg tablet 2 mg PO DAILY 07/18/21 07/18/21 History fesoterodine 8 mg tablet,extended 8 mg PO DAILY 07/18/21 07/18/21 History release 24 hr (Toviaz) fluticasone propionate 115 2 puff inhalation BID 07/18/21 07/18/21 History mcg-salmeterol 21 mcg/actuation HFA inhaler (Advair HFA) furosemide 20 mg tablet 20 mg PO QAM 07/18/21 07/18/21 History ibuprofen 800 mg tablet 1 mg PO TID 07/18/21 07/18/21 History ipratropium 0.5 mg-albuterol 3 mg 3 ml inhalation QID 07/18/21 07/18/21 History (2.5 mg base)/3 mL nebulization soln levofloxacin 500 mg tablet 500 mg PO DAILY 07/18/21 07/26/21 History lutein 20 mg tablet 20 mg PO DAILY 07/18/21 07/18/21 History memantine 10 mg tablet 10 mg PO DAILY 07/18/21 07/18/21 History montelukast 10 mg tablet 10 mg PO DAILY 07/18/21 07/18/21 History omega-3 fatty acids-vitamin E 1 cap PO DAILY 07/18/21 07/18/21 History 1,000 mg capsule pantoprazole 40 mg tablet,delayed 40 mg PO DAILY 07/18/21 07/18/21 History release phenazopyridine 200 mg tablet 200 mg PO TID PRN Bladder Spasms 07/18/21 07/18/21 History pregabalin 100 mg capsule 100 mg PO BID 07/18/21 07/26/21 History testosterone cypionate 200 mg/mL 200 mg subcut MONTHLY 07/18/21 07/18/21 History intramuscular oil venlafaxine 75 mg capsule,extended 75 mg PO QAM 07/18/21 07/26/21 History release 24 hr hydrocodone 5 mg-acetaminophen 325 1 - 2 tablet PO Q6H PRN pain #20 07/26/21 Rx mg tablet tabs acetaminophen 325 mg tablet 650 mg PO Q4H pain 07/25/24 07/25/24 History albuterol sulfate 90 mcg/actuation 2 inh inhalation Q6H PRN wheezing 07/25/24 07/25/24 History aerosol inhaler (Proventil HFA) cetirizine 10 mg tablet 10 mg PO DAILY 07/25/24 07/25/24 History dabigatran etexilate 150 mg 150 mg PO BID 07/25/24 07/25/24 History capsule (Pradaxa) diltiazem HCl 120 mg 1 mg PO DAILY 07/25/24 07/25/24 History tablet,extended release 24 hr donepezil 10 mg tablet 10 mg PO DAILY 07/25/24 07/25/24 History empagliflozin 10 mg tablet 10 mg PO DAILY 07/25/24 07/25/24 History (Jardiance) fluticasone propionate 230 2 inh inhalation BID 07/25/24 07/25/24 History mcg-salmeterol 21 mcg/actuation HFA inhaler furosemide 40 mg tablet 40 mg PO DAILY 07/25/24 07/25/24 History itraconazole 10 mg/mL oral solution 200 mg PO BID 07/25/24 07/25/24 History lidocaine 5 % topical patch 1 patch topical DAILY 07/25/24 07/25/24 History lutein 20 mg capsule 20 mg PO DAILY 07/25/24 07/25/24 History memantine 10 mg tablet 10 mg PO BID 07/25/24 07/25/24 History metoprolol succinate 50 mg 50 mg PO DAILY 07/25/24 07/25/24 History tablet,extended release 24 hr montelukast 10 mg tablet 10 mg PO DAILY 07/25/24 07/25/24 History oxybutynin chloride 10 mg 10 mg PO DAILY 07/25/24 07/25/24 History tablet,extended rel
--- NOTE | 2024-07-28 13:31 | PC.NURSE ---
Pt has returned to unit after colonoscopy.
[2024-07-28] MEDS: VENLAFAXINE HCL XR 75 MG CAP.ER.24H PO (20:16)
[2024-07-28] MEDS: MEMANTINE 10 MG TABLET PO (20:16)
[2024-07-28] MEDS: VENLAFAXINE HCL XR 75 MG CAP.ER.24H 150 MG PO (20:16)
[2024-07-28] MEDS: PREGABALIN (*CRX) 50 MG CAPSULE 200 MG PO (20:16)
[2024-07-29] VITALS (12 sets, daily range): BP systolic 103–153; BP diastolic 55–78; PULSE 79–100; RESP 18; TEMP 36.3; O2SAT 93–100
[2024-07-29 05:42] LABS: Basophils Absolute Auto 0.1 K/mm3 (0.0-0.1); Basophils Percent Auto 0.6 % (0.2-1.2); Eosinophils Absolute Auto 0.1 K/mm3 (0-0.3); Eosinophils Percent Auto 0.7 % (0-4.4); Hematocrit 35.2 % (42.0-52.0); Hemoglobin 10.4 g/dL (14.0-18.0); Immature Granulocyte Absolute 0.23 K/mm3 (0.00-0.031); Immature Granulocyte Percent A 2.1 % (0-0.5); Lymphocytes Percent Auto 14.9 % (18.3-44.2); Mean Corpuscular HGB Conc 29.5 g/dl (32-36); Mean Corpuscular Hemoglobin 25.3 pg (26-34); Mean Corpuscular Volume 85.6 fl (80-100); Mean Platelet Volume 9.2 fl (7.4-10.4); Monocytes Absolute Auto 1.3 K/mm3 (0.1-0.6); Monocytes Percent Auto 11.9 % (2.6-8.5); Neutrophils Absolute Auto 7.5 K/mm3 (1.3-6.7); Neutrophils Percent Auto 69.8 % (45.5-73.1); Platelet Count Result 238 k/mm3 (150-375); Red Blood Count 4.11 M/mm3 (4.6-6.20); Red Cell Distribution Width 16.5 % (11.5-14.5); White Blood Count 10.8 K/mm3 (4.5-10.0)
[2024-07-29 05:56] LABS: Alanine Aminotransferase 26 U/L (6-50); Albumin Level 3.2 g/dL (3.5-5.1); Alkaline Phosphatase 102 U/L (38-126); Anion Gap 6 mmol/L (4-12); Aspartate Amino Transferase 26 U/L (17-59); Bilirubin,Total 0.2 mg/dL (0.2-1.3); Blood Urea Nitrogen 33 mg/dL (9-20); Calcium 8.6 mg/dL (8.4-10.2); Carbon Dioxide 27 mmol/L (22-30); Chloride 104 mmol/L (98-107); Estimated CRCL calculation 64 ml/min; Estimated Glomerular Filt Rate > 60; Glucose 104 mg/dL (65-110); Potassium 4.4 mmol/L (3.4-5.0); Sodium 137 mmol/L (137-145)
[2024-07-29 06:13] LABS: Anisocytosis 1+; Platelet Estimate Adequate (Adequate); Schistocytes None Seen
[2024-07-29] MEDS: FLUTICASONE/SALMETEROL 230-21 MCG INHALER 1 PUFF 2 PUFF INHALATION (07:24)
[2024-07-29] MEDS: UMECLIDINIUM BROMIDE 62.5 MCG ELLIPTA 1 PUFF INHALATION (07:25)
[2024-07-29] MEDS: EMPAGLIFLOZIN 10 MG TABLET PO (08:49)
[2024-07-29] MEDS: PANTOPRAZOLE 40 MG TABLET PO (08:49)
[2024-07-29] MEDS: FERROUS SULFATE 325 MG TABLET DR PO (08:49)
[2024-07-29] MEDS: LIDOCAINE 5% PATCH 1 PATCH TOPICAL (08:49)
[2024-07-29] MEDS: MONTELUKAST SODIUM 10 MG TABLET PO (08:49)
[2024-07-29] MEDS: oxyBUTYnin CHLORIDE XL 5 MG TAB.ER.24 10 MG PO (08:49)
[2024-07-29] MEDS: MEMANTINE 10 MG TABLET PO (08:49)
[2024-07-29] MEDS: LORATADINE 10 MG TABLET PO (08:49)
[2024-07-29] MEDS: PREGABALIN (*CRX) 50 MG CAPSULE 200 MG PO (08:49)
--- NOTE | 2024-07-29 12:14 | PHAR ---
PHARMACY VERIFIED HOME MED: * Use from home * Itraconazole 10 mg/mL solution take 20 mL (200 mg) by mouth twice daily
[2024-07-29] MEDS: METOPROLOL SUCCINATE EXT REL 50 MG TABCR PO (12:47)
--- NOTE | 2024-07-29 13:24 | PM.DS ---
DS: Admitting Diagnosis Discharge Date 07/29/2024 Admitting Diagnosis Syncope DS: Discharge Diagnosis Discharge Diagnosis (1) Orthostatic hypotension: Code(s): I95.1 - Orthostatic hypotension Status: Acute (2) Chronic obstructive pulmonary disease: Code(s): J44.9 - Chronic obstructive pulmonary disease, unspecified Status: Acute (3) Occult blood positive stool: Code(s): R19.5 - Other fecal abnormalities Status: Acute (4) Normocytic anemia: Code(s): D64.9 - Anemia, unspecified Status: Acute DS: Summary Hospital Course Reason for hospitalization: COPD, Orthostatic hypotension, anemia Hospital Course: his is a very pleasant 74-year-old male with history of mild cognitive impairment, chronic obstructive pulmonary disease, pulmonary hypertension, obstructive sleep apnea, chronic respiratory failure on home oxygen, heart failure with preserved ejection fraction, left lower extremity DVT on dabigatran, and benign prostatic hyperplasia who presented to the emergency department for evaluation after syncopal episode. The patient and his provide the following history. He was hospitalized at [facility] in the last month and a half or so at which time he was diagnosed with fungal pneumonia for which he is to remain on itraconazole for upwards of a year. During that visit he was found to have a left lower extremity DVT and was started on dabigatran. He also had a stress echo and was started on diltiazem, metoprolol, and spironolactone thereafter though he cannot provide more specific details. In any event, he has been doing okay since discharge and he has not had any real complaints. His home health nurse has remarked that his blood pressures have been lower than usual since his discharge though the patient seems to be asymptomatic with that. He has bruising throughout his upper and lower extremities and reports that he has had numerous falls this year but none in a couple of weeks. He is essentially wheelchair bound but can stand and pivot however he admits that he is quite weak and his legs tend to give out, causing the falls. He felt okay when he got up this morning, had breakfast, and he and his headed out to [employer]. While attempting to exit the car he slumped in the seat and was briefly unresponsive although states his eyes were open. He does not recall experiencing antecedent symptoms prior to this episode. Chest X-Ray 07/25/24 09:56 Impression: Possible focal airspace disease right upper lobe and left lower lobe. Consider pneumonia or possibly chronic changes. Consider chest CT to better evaluate. Cervical Spine CT 07/25/24 10:39 Impression: No fracture. 4 mm anterolisthesis of C4 over C5. Degenerative spondylosis, as above. Head CT 07/25/24 10:40 Impression: No intracranial hemorrhage, mass, or acute infarct. Atrophy and chronic white matter changes, as above. Chest CT 07/25/24 10:42 Impression: No evidence of pulmonary embolus, aortic dissection, or aortic aneurysm. Bilateral pulmonary nodules, including 1.9 cm right upper lobe pulmonary nodule, 2 cm left lower lobe pulmonary nodule, as well as additional subcentimeter nodules. Please see details above. These are indeterminate, especially without prior exams to establish chronicity of these lesions. Consider short-term follow-up exam after chemotherapy versus PET/CT or tissue sampling to further evaluate, as neoplastic lesions are not excluded. Comparison with any outside prior chest CT would be extremely useful to assess for chronicity of these lesions. Patient follows with [facility]. Colonoscopy 07/28/2024 showed:There were two 3 mm to 8 mm polyps observed in the cecum. One cold snare and one hot snare polypectomies were performed. The polyps were completely excised. One Resolution Clip was placed to prevent bleeding. There was a single 4 mm polyp observed in the ascending colon. A cold snare polypectomy
--- NOTE | 2024-07-29 13:40 | PCOTNOTE ---
Attempted to see Patient this P.M. Patient declined therapy. Patient stated he is discharging this afternoon, to go home with his .
== END 2024-07-29 14:35 | disposition home health service (06) | DRG 312 ==
LOC: ANHED 10:39 → ANH2MED 14:16
PROVIDERS: Emergency Medicine; Internal Medicine Gastroenterology; Physician Assistant; Admitting Provider Internal Medicine; Emergency Provider Student in an Organized Health Care Education/Training Program; Visit Provider Nurse Practitioner Family
PROC: 0DJD8ZZ Inspection of Lower Intestinal Tract, Via Natural or Artificial Opening Endoscopic (ICD-10-PCS; CPT 45378; principal; 2024-07-28 14:30)
DX: I95.1 Orthostatic hypotension (principal); J16.8 Pneumonia due to other specified infectious organisms; E87.1 Hypo-osmolality and hyponatremia; J96.12 Chronic respiratory failure with hypercapnia; B49 Unspecified mycosis; I50.32 Chronic diastolic (congestive) heart failure; I27.20 Pulmonary hypertension, unspecified; J44.9 Chronic obstructive pulmonary disease, unspecified; D64.9 Anemia, unspecified; K63.5 Polyp of colon; K57.30 Diverticulosis of large intestine without perforation or abscess without bleeding; N40.0 Benign prostatic hyperplasia without lower urinary tract symptoms; R19.5 Other fecal abnormalities; R91.8 Other nonspecific abnormal finding of lung field; R29.6 Repeated falls; M19.90 Unspecified osteoarthritis, unspecified site; G47.33 Obstructive sleep apnea (adult) (pediatric); F41.9 Anxiety disorder, unspecified; Z20.822 Contact with and (suspected) exposure to COVID-19; Z99.81 Dependence on supplemental oxygen; Z86.718 Personal history of other venous thrombosis and embolism; Z79.01 Long term (current) use of anticoagulants; Z99.3 Dependence on wheelchair
CPT/HCPCS: 36415; 70450; 71046; 71260; 72125; 80048; 80053; 81003; 82274; 82570; 82607; 82728; 82746; 83540; 83550; 83735; 83880; 83930; 83935; 84300; 84439; 84443; 84480; 84484; 84540; 85025; 85027; 87637; 88305; 93005; 94640; 96361; 96374; 97110; 97116; 97161; 97165; 97530; 97535; 99285; A9270; G0378; J2001; J2270; J2704; J7030; J7040; J7120; Q9967